=== PATIENT | male | born 1980 | race Hispanic/Latino ===

== ENCOUNTER 2022-06-09 08:56 | Emergency (ER) | payer SELFPAY ==
[2022-06-09 09:14] VITALS: BP 142/85
== END 2022-06-10 08:34 | disposition left against medical advice (07) ==
LOC: ED 08:56
DX: M54.9 Dorsalgia, unspecified (principal); M79.606 Pain in leg, unspecified; Z53.21 Procedure and treatment not carried out due to patient leaving prior to being seen by health care provider